=== PATIENT | male | born 1970 | race Caucasian/White ===

== ENCOUNTER → 2019-07-16 | Outpatient (CLI) | payer BC ==
[2019-07-16 10:35] LABS: HCT 42.2 % (39.0-53.0); HGB 14.1 gm/dL (13.0-17.5); MCH 28.5 pg (25.0-35.0); MCHC 33.4 g/dL (31.0-37.0); MCV 85.3 fL (80.0-100.0); Mean Platelet Volume 9.1; Platelet Count 241 k/uL (150-450); RBC 4.95 m/uL (4.30-5.90); RDW 14.2 % (11.5-15.5); WBC 6.7 k/uL (3.8-10.6)
[2019-07-16 10:40] LABS: Appearance,Urine Clear (Clear); Bilirubin,Urine Negative (Negative); Blood,Urine Negative (Negative); Color,Urine Yellow; Glucose,Urine (UA) Negative (Negative); Ketones,Urine Negative (Negative); Leukocyte Esterase,Urine Negative (Negative); Nitrite,Urine Negative (Negative); Protein,Urine Negative (Negative); Specific Gravity,Urine 1.016 (1.001-1.035); Urobilinogen,Urine <2.0 mg/dL (<2.0)
[2019-07-16 17:03] LABS: Albumin 4.8 g/dL (3.80-4.90); Albumin/Globulin Ratio 2.09 (1.60-3.17); Anion Gap 8.1 mmol/L (4.00-12.00); BUN/Creat Ratio 11.11 Ratio (12.00-20.00); Calcium 9.7 mg/dL (8.7-10.3); Carbon Dioxide 23.9 mmol/L (21.6-31.8); Chol/HDL Ratio 4.7; Globulin 2.3 g/dL (1.6-3.3); LDL Cholesterol,Calculated 105.4 mg/dL (0.0-131.0); Potassium 4.8 mmol/L (3.5-5.5); Total Bilirubin 0.5 mg/dL (0.3-1.2); Total Protein 7.1 g/dL (6.2-8.2); VLDL Calculation 31.6 mg/dL (5.00-40.00)
[2019-07-16 18:58] LABS: Hemoglobin A1C 6.6 % (4.0-6.0)
== END | disposition home or self-care (01) ==
LOC: LABWHC1 09:57
PROVIDERS: ATTEND Internal Medicine
DX: Z00.00 Encounter for general adult medical examination without abnormal findings (principal); E11.9 Type 2 diabetes mellitus without complications
CPT/HCPCS: 36415; 80053; 80061; 81003; 82043; 82570; 83036; 85027

== ENCOUNTER → 2020-08-15 | Outpatient (CLI) | payer BC ==
[2020-08-15 08:02] LABS: African American GFR (CKD) >90 (>60 ml/min/1.73 sqM); Blood Urea Nitrogen 7 mg/dL (9-20); Non-African American GFR(CKD) >90 (>60 ml/min/1.73 sqM)
--- NOTE | 2020-08-15 09:43 | CT ---
EXAMINATION TYPE: CT neck chest w/wo con DATE OF EXAM: 08/15/2020 COMPARISON: NONE HISTORY: Localized enlarged lymph nodes per order. Presumed abnormal physical exam. History of right neck lymph node removal per patient. CT DLP: 1506.2 mGycm. Automated Exposure Control for Dose Reduction was Utilized. TECHNIQUE: CT scan of the neck and thorax are performed following without and with IV Contrast, agnes ent injected with 100 ml mL of Isovue 300. FINDINGS: Neck: Airway: Slight asymmetric filling of the left piriform sinus without obvious mass, favor retained sec retions. Remainder airway unremarkable. Parotid/submandibular glands: No gross abnormality seen. Carotid/Vascular Structures: No significant plaque or stenosis carotid bulb level bilaterally. Osseous Structures: No significant abnormality. Other: Nasal septal deviation is present. Parapharyngeal fat spaces are maintained bilaterally. Few p rominent but subcentimeter lymph nodes throughout the upper to mid neck for reference 8 x 7 mm right submental lymph node at level of hyoid bone axial image 34 deep to platysmas muscle . No greater than 1 cm left-sided neck adenopathy. There is borderline 1.0 x 1.0 cm right supraclavicular lymph node a xial image 22. There are additional enlarged right supraclavicular lymph nodes near metallic BB seen coronal image 24, largest measures 1.3 x 1.0 cm. Metallic BB is at level of vocal cords. Prominent ly mph node seen at this level extending to supraclavicular region. Hounsfield units average 27 precontr ast coronal image 25 and 35 postcontrast coronal image 24. Perhaps minimal enhancement. Chest: LUNGS: Mild linear scarring in both lung bases. No suspicious nodules or masses. No suspicious focal consolidation. MEDIASTINUM: There are no greater than 1 cm hilar or mediastinal lymph nodes. No cardiomegaly or pe ricardial effusion is seen. OTHER: Left greater than right subareolar gynecomastia. No axillary adenopathy noted. Visualized live r is hypodense suggesting fatty infiltration. Slight scoliotic curvature or positioning. IMPRESSION: Suspicious right neck adenopathy near BB predominantly supraclavicular in location. Corre lation should be made with findings during prior excisional biopsy. Consider PET/CT to further evalua te based on clinical correlation.
== END | disposition home or self-care (01) ==
LOC: RADCTMAIN 07:17
PROVIDERS: ATTEND Internal Medicine
DX: R59.0 Localized enlarged lymph nodes (principal)
CPT/HCPCS: 82565; 84520; 70492; 71270; 36415; Q9967

== ENCOUNTER → 2021-01-08 | Outpatient (CLI) | payer BC ==
[2021-01-08 21:36] LABS: African American GFR (CKD) 119.9 (60.0-200.0); Albumin 4.5 g/dL (3.80-4.90); Albumin/Globulin Ratio 1.55 (1.60-3.17); Anion Gap 8.8 mmol/L (4.00-12.00); BUN/Creat Ratio 8.75 Ratio (12.00-20.00); Calcium 10.1 mg/dL (8.7-10.3); Carbon Dioxide 25.2 mmol/L (21.6-31.8); Globulin 2.9 g/dL (1.6-3.3); Non-African American GFR(CKD) 103.4 (60.0-200.0); Potassium 4.3 mmol/L (3.5-5.5); Total Bilirubin 0.8 mg/dL (0.3-1.2); Total Protein 7.4 g/dL (6.2-8.2)
== END | disposition home or self-care (01) ==
LOC: LABWHC1 11:21
PROVIDERS: ATTEND Internal Medicine Infectious Disease
DX: A18.2 Tuberculous peripheral lymphadenopathy (principal); Z79.899 Other long term (current) drug therapy
CPT/HCPCS: 36415; 80053

== ENCOUNTER → 2021-03-07 | Outpatient (CLI) | payer BC ==
[2021-03-08 13:42] LABS: African American GFR (CKD) 119.9 (60.0-200.0); Albumin 4.9 g/dL (3.80-4.90); Albumin/Globulin Ratio 2.04 (1.60-3.17); Anion Gap 20.5 mmol/L (4.00-12.00); BUN/Creat Ratio 11.25 Ratio (12.00-20.00); Bilirubin, Conjugated 0.3 mg/dL (0.20-0.40); Bilirubin,Unconjugated 0.4 mg/dL; Calcium 9.9 mg/dL (8.7-10.3); Carbon Dioxide 17.5 mmol/L (21.6-31.8); Globulin 2.4 g/dL (1.6-3.3); Non-African American GFR(CKD) 103.4 (60.0-200.0); Total Bilirubin 0.7 mg/dL (0.2-1.2); Total Protein 7.3 g/dL (6.2-8.2)
== END | disposition home or self-care (01) ==
LOC: LABWHC1 14:34
PROVIDERS: ATTEND Internal Medicine Infectious Disease
DX: E78.00 Pure hypercholesterolemia, unspecified (principal); I10 Essential (primary) hypertension; Z22.7 Latent tuberculosis
CPT/HCPCS: 36415; 80048; 80076

== ENCOUNTER → 2021-05-13 | Outpatient (CLI) | payer BC ==
[2021-05-13 19:34] LABS: ALT 11 U/L (10-49); AST 16 U/L (14-35); African American GFR (CKD) 125.8 (60.0-200.0); Albumin/Globulin Ratio 1.88 (1.60-3.17); Alkaline Phosphatase 63 U/L (41-126); BUN/Creat Ratio 11.43 Ratio (12.00-20.00); C Reactive Protein <0.4 mg/dL (0.0-0.8); Calcium 9.1 mg/dL (8.7-10.3); Carbon Dioxide 26.7 mmol/L (21.6-31.8); Chloride 108 mmol/L (96-109); Globulin 2.4 g/dL (1.6-3.3); Glucose 160 mg/dL (70-110); Non-African American GFR(CKD) 108.5 (60.0-200.0); Potassium 4.2 mmol/L (3.5-5.5); Sodium 141 mmol/L (135-145); Total Bilirubin 0.7 mg/dL (0.3-1.2); Total Protein 6.9 g/dL (6.2-8.2)
== END | disposition home or self-care (01) ==
LOC: LABWHC1 14:31
PROVIDERS: ATTEND Internal Medicine Infectious Disease
DX: A15.9 Respiratory tuberculosis unspecified (principal)
CPT/HCPCS: 36415; 80048; 80076; 85652; 86140

== ENCOUNTER → 2021-07-08 | Outpatient (CLI) | payer BC ==
[2021-07-08 23:39] LABS: African American GFR (CKD) 125.8 (60.0-200.0); Albumin 4.6 g/dL (3.80-4.90); Albumin/Globulin Ratio 1.77 (1.60-3.17); Anion Gap 10.7 mmol/L (4.00-12.00); Bilirubin, Conjugated 0.3 mg/dL (0.20-0.40); Bilirubin,Unconjugated 0.4 mg/dL; Calcium 9.1 mg/dL (8.7-10.3); Carbon Dioxide 23.3 mmol/L (21.6-31.8); Globulin 2.6 g/dL (1.6-3.3); Non-African American GFR(CKD) 108.5 (60.0-200.0); Potassium 4.3 mmol/L (3.5-5.5); Total Bilirubin 0.7 mg/dL (0.2-1.2); Total Protein 7.2 g/dL (6.2-8.2)
== END | disposition home or self-care (01) ==
LOC: LABWHC1 13:50
PROVIDERS: ATTEND Internal Medicine Infectious Disease
DX: Z22.7 Latent tuberculosis (principal)
CPT/HCPCS: 36415; 80048; 80076